=== PATIENT | female | born 1960 | race Caucasian/White ===

== ENCOUNTER → 2018-02-11 | Outpatient (CLI) | payer OTHER | LOC: RAD 11:14 | DX: Z12.31 Encounter for screening mammogram for malignant neoplasm of breast (principal) ==

== ENCOUNTER → 2018-02-17 | Outpatient (CLI) | payer OTHER | LOC: RAD 08:08 → ULTRA 08:08 | DX: N63.20 Unspecified lump in the left breast, unspecified quadrant (principal); R92.2 Inconclusive mammogram ==

== ENCOUNTER → 2019-02-12 | Outpatient (CLI) | payer BC | LOC: RAD 04:09 | DX: Z12.31 Encounter for screening mammogram for malignant neoplasm of breast (principal) ==

== ENCOUNTER 2019-04-20 21:09 | Emergency (ER) | payer BC ==
[~2019-04-20] VITALS: Ht 175.3 cm; Wt 124.7 kg
[2019-04-20] MEDS ORDERED: SENNA PLUS TAB1 EACH PO (23:50)
[2019-04-20] MEDS ORDERED: NORCO 5-325 TA1 EAC1 PO (23:50)
[2019-04-20] MEDS ORDERED: NAPROSYN500 MG PO (23:50)
[2019-04-20] MEDS ORDERED: NORFLEX100 MG PO (23:50)
[2019-04-21 00:06] VITALS: BP 159/73
== END 2019-04-21 00:05 | disposition home or self-care (01) ==
LOC: ER 21:09
DX: S16.1XXA Strain of muscle, fascia and tendon at neck level, initial encounter (principal); S00.03XA Contusion of scalp, initial encounter; W10.9XXA Fall (on) (from) unspecified stairs and steps, initial encounter; Y92.009 Unspecified place in unspecified non-institutional (private) residence as the place of occurrence of the external cause; Y93.01 Activity, walking, marching and hiking; Y99.8 Other external cause status

== ENCOUNTER → 2020-04-19 | Outpatient (CLI) | payer OTHER ==
[~2020-04-19] MED LIST: NAPROSYN500 MG PO; NORCO 5-325 TA1 EAC1 PO; NORFLEX100 MG PO; SENNA PLUS TAB1 EACH PO
== END ==
LOC: RAD 04-03 08:24
PROVIDERS: ATTEND Internal Medicine
DX: Z12.31 Encounter for screening mammogram for malignant neoplasm of breast (principal)